=== PATIENT | female | born 1970 | race Caucasian/White ===

== ENCOUNTER 2016-11-29 12:16 | Emergency (ER) | payer OTHER ==
[~2016-11-29] VITALS: Ht 322.6 cm; Wt 81.6 kg
[~2016-11-29 12:16] MED LIST: NOMEDS *
--- OUTSIDE RECORDS SUMMARY | 2016-11-29 12:45 | External Medical Summary Rpt ---
Author Author GRETCHEN Heredia, GRETCHEN Hered[employer] Organization [employer] Address Unknown Phone Unavailable
--- OUTSIDE RECORDS SUMMARY | 2016-11-29 12:45 | External Medical Summary Rpt ---
Demographics Preferred Language Lao Marital Status Unknown Latter Day Affiliation Unknown Race Unknown Ethnic Group Unknown Author Author GRETCHEN Address Unknown Phone Immunization No patient found.
--- OUTSIDE RECORDS SUMMARY | 2016-11-29 12:45 | External Medical Summary Rpt ---
Author Author GRETCHEN Address Unknown Phone [email or web address] Purpose Continuity of Care Document - through 2016
--- OUTSIDE RECORDS SUMMARY | 2016-11-29 12:45 | External Medical Summary Rpt ---
Author Author [employer] Organization [employer] Address Unknown Phone Unavailable Purpose Continuity of Care Document - through 2016
--- OUTSIDE RECORDS SUMMARY | 2016-11-29 12:45 | External Medical Summary Rpt ---
Author Author GRETCHEN Address Unknown Phone Purpose Continuity of Care Document - through 2016
--- OUTSIDE RECORDS SUMMARY | 2016-11-29 12:45 | External Medical Summary Rpt ---
Demographics Preferred Language Kyrgyz Marital Status Unknown Restoration Affiliation Unknown Race Unknown Ethnic Group Unknown Author Author GRETCHEN Address Unknown Phone Immunization No patient found.
--- NOTE | 2016-11-29 12:48 | Emergency Room Report ---
History of Present Illness Time Seen by [id number] Presenting Problem in Triage Pt arrived:Walked Presenting Problem:PT SENT [facility] WITH NUMBNESS/TINGLING ON THE LEFT SIDE OF HE FACE. PT HAS SOME WEAKNESS IN THE LEFT ARM. NO FACIAL DROOP OR SPEECH PROBLEMS. ADVISES SYMPTOMS STARTED THIS AM Onset of symptoms date/time:/ or onset unknown for:MEDICAL HX UNKNOWN Treatment Prior to Arrival: [employer] Provided by: Sepsis Risk Assessment: Temp: 98.2 B/P: 187/112 MAP: 137 Pulse: 112 Resp: 16 Recent fever? N Clinical Suspician of Infection? N Mental Status: 1 - Regular (Normal Baseline) Sepsis Risk:Low Sepsis Risk Have you (or family members/close friends) recently traveled outside the [place]? N If Yes, where/when: Have you had exposure to infectious disease within the past month? N TB? Other? Specify: Source patient, RN notes reviewed, family, RN/MD Exam Limitations no limitations Comment This is a 46-year-old feel patient presented to the emergency room with LEFT face numbness, perioral anesthesia. She denies any recent travel, any recent exposure to sick contacts. Patient denies any neurological deficits, slurred speech or blurred vision. ALLERGIES Coded Allergies: No Known Allergies (11/29/16) Home Medications Reported Medications No Home Medications (NO HOME MEDICATIONS) 1 X * ONCE History Medical History General CAD? No Angina: No AR: No Hypertension? No Hyperlipidemia? No CHF? No DVT? No PE? No COPD? No Asthma? No Anemia? No GERD? No Gastric ulcers? No GI Bleed? No Hernia? No Thyroid Problems? No Hypothyroidism? No CVA? No Seizures? No Diabetes? No Renal Insuffiency? No End Stage Renal Disease? No UTI? No Stones? No BPH? No GB Disease: No Nephritic Syndrome? No Asplenia? No Hepatitis? No Sickle Cell Disease? No Arthritis? No Migraines? No Cataracts? No Glaucoma? No MRSA? No HIV? No TB? No Anxiety? No Depression? No Cancer? No More? 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 Now Social History Smoking Hx Smoker: Current Every Day Smoker Tobacco: Yes Type Cigarettes Packs/day < 1 Pack Alcohol Alcohol: No Review of Systems All Other Systems Reviewed and Negative Psychiatric/Neurological numbness (left face) Physical Exam Vital Signs Vital Signs Date Time Temp Pulse Resp B/P Pulse O2 O2 Flow FiO2 Ox Delivery Rate 11/29 1357 87 20 144/93 98 11/29 1340 89 20 139/98 98 11/29 1256 87 16 154/78 98 11/29 1219 98.2 112 16 187/112 98 General Appearance normal appearance, WD/WN, no apparent distress Eye Exam - bilateral eye normal exam, bilateral eye PERRL, bilateral eye EOMI, bilateral eye other (normal fundi) Ear, Nose, Throat hearing grossly normal, normal ENT inspection Neck normal inspection, non-tender, supple, full range of motion Respiratory Status Yes: trachea midline, chest symmetrical, non tender chest. No: respiratory distress. Lung Sounds bilateral: normal breath sounds, lungs clear. Cardiovascular normal exam, regular rate/rhythm, no peripheral edema, no gallop, no JVD, no murmur, no rub, normal peripheral pulses Peripheral Pulses Pulses normal Yes Gastrointestinal normal bowel sounds, normal exam, non tender, soft, no organomegaly Extremities non-tender, normal range of motion, normal inspection Neurologic alert, peoplesoft II-XII nml as tested, normal exam, no motor/sensory deficits, oriented x 3 Glascow Coma Scale Glascow Coma Scale Response Value EYE response: 4 Spontaneously 4 MOTOR response: 6 OBEYS 6 VERBAL response: 5 Oriented & Converses 5 Total 15 Mental status normal mood/affect Skin intact, normal color, warm/dry Stroke Score/Tx Stroke Evaluation Initial symptoms indicative of possible stroke? Yes NIH STROKE SCORE NIH STROKE SCORE Response Value 1a.Level of Consciousness ALERT 0 1b.LOC Questions ANSWERS BOTH CORRECTLY 0 1c.LOC Commands OBEYS BOTH CORRECTLY 0 2 .Best Gaze NORMAL 0 3 .Visual NO VISUAL LOSS 0 4 .Facial Palsy NORMAL 0 5a.Motor Arm Left NO DRIFT 0 5b.Motor Arm Right NO DRIFT 0 6a.Motor Leg Left NO DRIFT 0 6b.Motor Leg Right NO DRIFT 0 7 .Limb Ataxia ABSENT 0 8 .Sensory NORMAL 0 9 .Best Language NO APHASIA 0 10.Dysarthria NORMAL ARTICULATION 0 ED.NIH11 NO NEGLECT 0 Total 0 Treatment Consideration t-PA ordered? No Comment/Progress Examination inconsistent with stroke Exit section? Yes Medical Decision Making LABS/Meds/Orders Pt receiving controlled substance in ED? No Comment Upon reevaluation patient appears medically stable, neurologically intact. 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 Explained patient etiology, therapeutic options. Advised patient to start the Valtrex and steroids, follow-up with neurologist within 2 days, if no better. Results/Orders Laboratory Tests 11/29/16 1250: Sodium 138, Potassium 3.4 L, Chloride 104, Carbon Dioxide 25, BUN 11, Creatinine 0.8, Estimated Creat Clear 114, Estimated GFR (MDRD) 78, Glucose 110 H, Calcium 8.6, Total Bilirubin 0.3, AST 13 L, ALT 22, Alkaline Phosphatase 99, Creatine Kinase 83, CK-MB (CK-2) Rel Index 0.6, CK and CKMB Interp < 0.5, Troponin I < 0.02, Total Protein 7.7, Albumin 3.9, Globulin 3.8 H, Albumin/ Globulin Ratio 1.0 L, WBC 6.9, RBC 4.60, Hgb 13.8, Hct 40.2, MCV 87.4, RDW 13.7 , Plt Count 376, MPV 7.6, Gran % 64.6, Gran # 4.5, Lymphocytes % 27.6, Monocytes % 5.3, Eosinophils % 1.9, Basophils % 0.5, Lymphocytes # 1.9, Monocytes # 0.4, Eosinophils # 0.1, Basophils # 0.0, PUBS MCHC 34.0, MCH 29.7 11/29/16 1229: Urine Color Cancelled, Urine Appearance Cancelled, Urine pH Cancelled, Ur Specific [place] Cancelled Orders Procedure Date/time Status DIET-NOTHING BY MOUTH 11/29 D Active ELECTROCARDIOGRAM REQUEST 11/29 1229 Active IV SALINE LOCK 11/29 1229 Active CBC WITH AUTO DIFF 11/29 1229 Complete CARDIAC ENZYMES 11/29 1229 Complete CHEM 12 PROFILE 11/[address] HEAD REQ 11/29 122 Complete 12 LEAD EKG-KARMA (INITIAL) 11/29 UNK Active 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 of ischemic chgs, no ectopy, normal QRS, normal AR, normal EKG, no EKG for comparison, non-spec. ST/Twave chgs, ST elevation, ST depression, LBBB, RBBB, ectopy, abnormal Q waves XRAY/CT/US XRAY/CT/US CT head CT interpretation by reviewed by me, discussed w/radiologist CT Results no acute intracranial hemorrhage per radiologist Departure Departure Time of Disposition 1302 Disposition DC Home or Self Care(routine) Clinical Impression Primary Impression: Paresthesia Secondary Impressions: Agosto's palsy Condition STABLE Referrals CORTNEY OSCAR,MANUELITO QURESHI,ROSY ARELLANO,SANFORD HALL MD,KAMILLA Patient Instructions DI for Agosto's Palsy, DI for Numbness/tingling Additional Instructions Please take the meds as prescribed, follow up with neurologist within 2-3 days, if not better. It does not possible please follow-up with PCP, Rogelio Pinto instead. Discharge Counseling Counseled pt/family regarding diagnosis, test results, medications/RX, home care, follow up needs Comment Please take the meds as prescribed, follow up with neurologist within 2-3 days if not better. Prescriptions Current Visit Scripts VALACYCLOVIR HCL (Valtrex) 1 GM PO BID #14 TAB Methylprednisolone (Medrol Dose Mati) 4 MG PO UD #1 MATI TAKE DIRECTED ON PACKAGING ED Critical Care Critical Care No at 2001
--- NOTE | 2016-11-29 12:48 | Emergency Room Report ---
History of Present Illness Time Seen by [id number] Presenting Problem in Triage Pt arrived:Walked Presenting Problem:PT SENT FROM [facility] WITH NUMBNESS/TINGLING ON THE LEFT SIDE OF HE FACE. PT HAS SOME WEAKNESS IN THE LEFT ARM. NO FACIAL DROOP OR SPEECH PROBLEMS. 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 N Clinical Suspician of Infection? N Mental Status: 1 - Regular (Normal Baseline) Sepsis Risk:Low Sepsis Risk Have you (or family members/close friends) recently traveled outside the [place]? N If Yes, where/when: Have you had exposure to infectious disease within the past month? N TB? Other? Specify: Source patient, RN notes reviewed, family, RN/MD Exam Limitations no limitations Comment This is a 46-year-old feel patient presented to the emergency room with LEFT face numbness, perioral anesthesia. She denies any recent travel, any recent exposure to sick contacts. Patient denies any neurological deficits, slurred speech or blurred vision. ALLERGIES Coded Allergies: No Known Allergies (11/29/16) Home Medications Reported Medications No Home Medications (NO HOME MEDICATIONS) 1 X * ONCE History Medical History General CAD? No Angina: No VT: No Hypertension? No Hyperlipidemia? No CHF? No DVT? No PE? No COPD? No Asthma? No Anemia? No GERD? No Gastric ulcers? No GI Bleed? No Hernia? No Thyroid Problems? No Hypothyroidism? No CVA? No Seizures? No Diabetes? No Renal Insuffiency? No End Stage Renal Disease? No UTI? No Stones? No BPH? No GB Disease: No Nephritic Syndrome? No Asplenia? No Hepatitis? No Sickle Cell Disease? No Arthritis? No Migraines? No Cataracts? No Glaucoma? No MRSA? No HIV? No TB? No Anxiety? No Depression? No Cancer? No More? 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 Social History Smoking Hx Smoker: Current Every Day Smoker Tobacco: Yes Type Cigarettes Packs/day < 1 Pack Alcohol Alcohol: No Review of Systems All Other Systems Reviewed and Negative Psychiatric/Neurological numbness (left face) Physical Exam Vital Signs Vital Signs Date Time Temp Pulse Resp B/P Pulse O2 O2 Flow FiO2 Ox Delivery Rate 11/29 1357 87 20 144/93 98 11/29 1340 89 20 139/98 98 11/29 1256 87 16 154/78 98 11/29 1219 98.2 112 16 187/112 98 General Appearance normal appearance, WD/WN, no apparent distress Eye Exam - bilateral eye normal exam, bilateral eye PERRL, bilateral eye EOMI, bilateral eye other (normal fundi) Ear, Nose, Throat hearing grossly normal, normal ENT inspection Neck normal inspection, non-tender, supple, full range of motion Respiratory Status Yes: trachea midline, chest symmetrical, non tender chest. No: respiratory distress. Lung Sounds bilateral: normal breath sounds, lungs clear. 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 Yes NIH STROKE SCORE NIH STROKE SCORE Response Value 1a.Level of Consciousness ALERT 0 1b.LOC Questions ANSWERS BOTH CORRECTLY 0 1c.LOC Commands OBEYS BOTH CORRECTLY 0 2 .Best Gaze NORMAL 0 3 .Visual NO VISUAL LOSS 0 4 .Facial Palsy NORMAL 0 5a.Motor Arm Left NO DRIFT 0 5b.Motor Arm Right NO DRIFT 0 6a.Motor Leg Left NO DRIFT 0 6b.Motor Leg Right NO DRIFT 0 7 .Limb Ataxia ABSENT 0 8 .Sensory NORMAL 0 9 .Best Language NO APHASIA 0 10.Dysarthria NORMAL ARTICULATION 0 ED.NIH11 NO NEGLECT 0 Total 0 Treatment Consideration t-PA ordered? No Comment/Progress Examination inconsistent with stroke Exit section? Yes Medical Decision Making LABS/Meds/Orders Pt receiving controlled substance in ED? No Comment Upon reevaluation patient appears medically stable, neurologically intact. 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 Explained patient etiology, therapeutic options. Advised patient to start the Valtrex and steroids, follow-up with neurologist within 2 days, if no better. Results/Orders Laboratory Tests 11/29/16 1250: Sodium 138, Potassium 3.4 L, Chloride 104, Carbon Dioxide 25, BUN 11, Creatinine 0.8, Estimated Creat Clear 114, Estimated GFR (MDRD) 78, Glucose 110 H, Calcium 8.6, Total Bilirubin 0.3, AST 13 L, ALT 22, Alkaline Phosphatase 99, Creatine Kinase 83, CK-MB (CK-2) Rel Index 0.6, CK and CKMB Interp < 0.5, Troponin I < 0.02, Total Protein 7.7, Albumin 3.9, Globulin 3.8 H, Albumin/ Globulin Ratio 1.0 L, WBC 6.9, RBC 4.60, Hgb 13.8, Hct 40.2, MCV 87.4, RDW 13.7 , Plt Count 376, MPV 7.6, Gran % 64.6, Gran # 4.5, Lymphocytes % 27.6, Monocytes % 5.3, Eosinophils % 1.9, Basophils % 0.5, Lymphocytes # 1.9, Monocytes # 0.4, Eosinophils # 0.1, Basophils # 0.0, PUBS MCHC 34.0, MCH 29.7 11/29/16 1229: Urine Color Cancelled, Urine Appearance Cancelled, Urine pH Cancelled, Ur Specific [place] Cancelled Orders Procedure Date/time Status DIET-NOTHING BY MOUTH 11/29 D Active ELECTROCARDIOGRAM REQUEST 11/29 1229 Active IV SALINE LOCK 11/29 1229 Active CBC WITH AUTO DIFF 11/29 1229 Complete CARDIAC ENZYMES 11/29 1229 Complete CHEM 12 PROFILE 11/[address] HEAD REQ 11/29 122 Complete 12 LEAD EKG-KARMA (INITIAL) 11/29 UNK Active 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 of ischemic chgs, no ectopy, normal QRS, normal RI, normal EKG, no EKG for comparison, non-spec. ST/Twave chgs, ST elevation, ST depression, LBBB, RBBB, ectopy, abnormal Q waves XRAY/CT/US XRAY/CT/US CT head CT interpretation by reviewed by me, discussed w/radiologist CT Results no acute intracranial hemorrhage per radiologist Departure Departure Time of Disposition 1302 Disposition DC Home or Self Care(routine) Clinical Impression Primary Impression: Paresthesia Secondary Impressions: Agosto's palsy Condition STABLE Referrals CORTNEY OSCAR,MANUELITO QURESHI,ROSY ARELLANO,SANFORD HALL MD,KAMILLA Patient Instructions DI for Agosto's Palsy, DI for Numbness/tingling Additional Instructions Please take the meds as prescribed, follow up with neurologist within 2-3 days, if not better. It does not possible please follow-up with PCP, Rogelio Pinto instead. Discharge Counseling Counseled pt/family regarding diagnosis, test results, medications/RX, home care, follow up needs Comment Please take the meds as prescribed, follow up with neurologist within 2-3 days if not better. Prescriptions Current Visit Scripts VALACYCLOVIR HCL (Valtrex) 1 GM PO BID #14 TAB Methylprednisolone (Medrol Dose Mati) 4 MG PO UD #1 MATI TAKE DIRECTED ON PACKAGING ED Critical Care Critical Care No at 2001
[2016-11-29 13:00] LABS: LYMPH # 1.9 K/mm3 (0.7-4.5); LYMPH % 27.6 % (10-50.0)
[2016-11-29 13:11] LABS: HEMOGLOBIN 13.8 g/dL (12.2-16.2)
[2016-11-29 13:24] LABS: BUN 11 mg/dL (7-18)
[2016-11-29 13:28] LABS: GFR (ESTIMATED) 78 ML/MIN (59-)
[2016-11-29] MEDS ORDERED: VALTREX1 GM PO (13:28)
[2016-11-29] MEDS ORDERED: MEDROL 4MG. DOSE4 MG PO (13:28)
--- NOTE | 2016-11-29 13:44 | RADIOLOGY REPORT PS360 ---
CT HEAD W/O CONTRAST HISTORY: LT SIDE FACIAL NUMBNESS ORDERING PHYSICIAN: Jerman Cantor MD PATIENT AGE: 46 years COMPARISON: None TECHNIQUE: Axial images obtained without contrast. Brain and bone windows reviewed. FINDINGS: No midline shift, mass effect, intracranial hemorrhage, hydrocephalus, or extra-axial fluid collection is evident. The calvarium has an unremarkable appearance. No mastoid effusion. The visualized paranasal sinuses are unremarkable. IMPRESSION: Negative CT head without contrast. No acute finding. There is no evidence of intracranial hemorrhage, focal mass, or acute territorial infarction. A negative CT does not exclude an acute CVA. A follow-up head CT or MRI is recommended if neurological symptoms persist
[2016-11-29 13:57] VITALS: BP 144/93
== END 2016-11-29 13:57 | disposition home or self-care (01) ==
LOC: ER 12:16
PROVIDERS: Emergency Medicine
DX: G51.0 Bell's palsy (principal); Z72.0 Tobacco use